=== PATIENT | female | born 1980 | race Asian ===

== ENCOUNTER 2019-01-26 20:50 | Inpatient (IN) | payer OTHER, SELFPAY ==
[2019-01-26 22:02] VITALS: BMI 24.7
[2019-01-26 22:24] LABS: Absolute Lymphocyte Count 1.99 X10^3/uL (0.83-4.51); Basophil# 0.02 X10^3/uL; Basophil% 0.1 % (0-1); Eosinophils% 0.7 % (0-5); Hematocrit 40.4 % (37-47); Hemoglobin 13.4 g/dL (12.0-15.0); Lymphocyte # 1.99 X10^3/ul (4.0); Mean Corp Hgb Conc 33.2 g/dL (32-36); Mean Corpuscular Volume 90.4 fL (81-99); Mean Platelet Vol. 10.7 fl (6.2-12.0); Monocyte# 1.04 X10^3/uL; Monocyte% 7.3 % (0-10); NRBC Flagged by Analyzer 0 % (0-5); Neutrophil # 10.99 X10^3/uL (2.7-7.7); Neutrophil % 77.4 % (47-70); Platelet Count 219 K/mm3 (150-450); RBC Distribution Width CV 13.1 % (11.6-14.6); Red Blood Count 4.47 M/mm3 (4.2-5.4); White Blood Count 14.2 K/mm3 (4.4-11.0)
--- NOTE | 2019-01-26 22:44 | NURSING ---
large void noted
[2019-01-26 23:00] LABS: Rubella IgG 125.6 IU/mL
--- NOTE | 2019-01-27 06:57 | PCM.PN.BLA ---
Progress Note S: Patient with painful ctxs O: cvx - 5-6/90/-1 fhts 145 with mod variability, accels tocos Q2-3 min A&P: expectant management patient declines AROM
--- NOTE | 2019-01-27 12:39 | PCM.PN.OB ---
Subjective: Resting in bed on side, breathing through contractions. and accounting associate at bedside. Objective: FHT 135, moderate variability, accels, no decels, Category 1 TOCO:every 2-4 minutes, moderate to strong Cervix: 6cm/90/0. IBOW. AROM for large amount of clear fluid. Patient tolerated well. - Physical Exam Weight: 143 lb 12.815 oz Body Mass Index (BMI) 24.7 Intake and Output for Last 24 Hours 01/25/19 01/26/19 01/27/19 23:59 23:59 23:59 Intake Total 1600 / 1600 Output Total 700 / 700 Balance 900 / 900 Laboratory Tests Past 24 Hrs 01/26/19 01/26/19 01/26/19 22:05 22:05 22:05 WBC 14.2 H RBC 4.47 Hgb 13.4 Hct 40.4 MCV 90.4 MCH 30.0 MCHC 33.2 RDW Std Deviation 43.0 RDW Coeff of Peter 13.1 Plt Count 219 MPV 10.7 Immature Gran % (Auto) 0.500 Neut % (Auto) 77.4 H Lymph % (Auto) 14.0 L Towns % (Auto) 7.3 Eos % (Auto) 0.7 Baso % (Auto) 0.1 Absolute Neuts (auto) 11.0 H Absolute Lymphs (auto) 1.99 Absolute Nucleated RBC 0.00 Nucleated RBC % 0 Rubella IgG Antibody 125.6 Blood Type A POSITIVE Antibody Screen NEGATIVE Medical Necessity - Tobacco Use Smoking Status: Never smoker Assessment/Plan A:Active labor, protracted Category 1 FHT P: 1) Reviewed with patient recommendation for AROM. Reviewed R/B/A. Consented and tolerated well. 2) Discussed pain management options. Would like nitrous oxide at this time. 3) notified of patient status.
--- NOTE | 2019-01-27 12:44 | PCM.HP.OB ---
- Problem List (1) Advanced maternal age (AMA) in Status: Acute (2) Polyhydramnios affecting Status: Acute History Date of Admission: 01/26/19 Final HUONG: 01/23/19 Final HUONG Source: LMP Gestational age: 40 Weeks and 3 Days History of this : This is a 38 year-old, G [1], P [0], at 40 weeks 3 days gestational age for IOL due to AMA and polyhydramnios. Presented to L&D with irregular contractions upon admission. Allergies No Known Allergies Allergy (Verified 01/26/19 21:57) Home Medications: Home Medications Ferrous Sulfate [Iron] 325 mg PO DAILY 01/26/19 Vit No.130/Iron/Folic [ Tablet] 1 tab PO DAILY 01/26/19 Smoking Status: Never smoker Alcohol: None History Past Pregnancies: Past Pregnancies Delivery Date Name GA/Weeks Outcome Route Weight Infant Gender Labor Length Anesthesia Delivery Location Provider FOB Labs: RPR negative GBS negative GC/CT negative HBsAG negative HIV negative A positive Expected Delivery Method: Spontaneous Vaginal Review of Systems Constitutional: Denies: Chills, Fever, Weight Change HEENT: Denies: Head Aches, Sinus Congestion, Sinus Drainage Cardiovascular: Denies: Chest Pain, Palpitations Respiratory: Denies: Cough, Shortness of breath at rest, Sputum production Gastrointestinal: Denies: Abdominal Pain, Nausea, Vomiting Genitourinary: Denies: Dysuria Musculoskeletal: Denies: Joint Pain, Joint Tenderness Neurological: Denies: Numbness, Tingling, Focal weakness Psychiatric: Denies: Anxiety, Depression, Homicidal Ideations, Suicidal Ideations Physical Exam General: Alert, Oriented x3, Cooperative HEENT: Atraumatic, Normocephalic Abdomen: Gravid CANTILEVER CRANE OPERATOR: Normal external genitalia Estimated gestational size: Appropriate for gestational size Presentation: Cephalic Station: 3 Assessment/Plan All Active Problems Advanced maternal age (AMA) in (Acute) Polyhydramnios affecting (Acute) A: Postdates Induction of labor Polyhydramnios Advanced maternal age P: 1) Admit to L&D 2) Routine labs. IV saline lock 3) Early labor, patient requested to labor without augmentation. 4) management
[2019-01-27] MEDS: Nalbuphine 10 MG/ML Ampul IV ×2 (14:28→17:43)
[2019-01-27] MEDS: 0.9% Saline Lock 10 ML Syringe IV (14:29)
--- NOTE | 2019-01-27 17:26 | PCM.PN.OB ---
Patient Problems: Active and Suspected Problems Advanced maternal age (AMA) in (Acute) Polyhydramnios affecting (Acute) Subjective: Coping well with contractions, using nitrous for pain relief and effective. and regional marketing manager at bedside. Objective: FHT 130, moderate variability, accels, no decels TOCO: Contractions every 2-5, strong, lasting 60 seconds Cervix 8cm/95%/0 head transverse. - Physical Exam Weight: 143 lb 12.815 oz Body Mass Index (BMI) 24.7 Intake and Output for Last 24 Hours 01/25/19 01/26/19 01/27/19 23:59 23:59 23:59 Intake Total 2600 / 2600 Output Total 1700 / 1700 Balance 900 / 900 Laboratory Tests Past 24 Hrs 01/26/19 01/26/19 01/26/19 22:05 22:05 22:05 WBC 14.2 H RBC 4.47 Hgb 13.4 Hct 40.4 MCV 90.4 MCH 30.0 MCHC 33.2 RDW Std Deviation 43.0 RDW Coeff of Peter 13.1 Plt Count 219 MPV 10.7 Immature Gran % (Auto) 0.500 Neut % (Auto) 77.4 H Lymph % (Auto) 14.0 L [place] % (Auto) 7.3 Eos % (Auto) 0.7 Baso % (Auto) 0.1 Absolute Neuts (auto) 11.0 H Absolute Lymphs (auto) 1.99 Absolute Nucleated RBC 0.00 Nucleated RBC % 0 Rubella IgG Antibody 125.6 Blood Type A POSITIVE Antibody Screen NEGATIVE Medical Necessity - Tobacco Use Smoking Status: Never smoker Assessment/Plan All Active Problems Advanced maternal age (AMA) in (Acute) Polyhydramnios affecting (Acute) A:Active labor, progressing Category 1 FHT P: 1) Discussed with patient contractions spacing out and recommendation for starting pitocin. Reviewed r/b/a and agreed with plan. 2) Discussed positional changes 3) notified and hand off care.
[2019-01-27] MEDS: Lactated Ringers 1,000 ML 50 ML IV (17:52)
[2019-01-27] MEDS: Oxytocin 30 units/NS 500 ml 30 UNITS/500 ML IV.SOLN IV (17:57)
--- NOTE | 2019-01-27 22:33 | PCM.PN.BLA ---
Progress Note Patient seen at bedside. Vaginal exam performed patient is 8 cm / 95%/0 station fetus noted to be transverse arrest. Estimated weight approximately 9 pounds. Discussed with the patient and that she has not made significant change. Patient has been 8 cm since approximately 4:50 PM. Discussed that this is considered arrest and I recommend a primary section at this time. Patient and want time to discuss. I discussed we could do gentle still with delayed cord clamping if the infant is vigorous at , clear draped, if staffing available immediate skin the skin.
[2019-01-27] MEDS: CHLORHEXIDINE GLUC 2% CLOTH 1 EACH TOWELETTE TOPICAL (22:40)
[2019-01-27] MEDS: Sodium Citrate/Citric Acid 30 ML UDC PO (22:40)
[2019-01-27] MEDS: Lactated Ringers 1,000 ML 999 ML IV (22:49)
[2019-01-27] MEDS: Cefazolin 2 GM in 0.9% Normal Saline 100 ML IV (22:58)
[2019-01-27] MEDS: Oxytocin 30 units/NS 500 ml 30 UNITS/500 ML IV.SOLN 167 UNITS IV (23:19)
--- NOTE | 2019-01-27 23:55 | OP.PCM_ITS ---
Delivery Classification: KRISTIE Final HUONG: 01/23/19 Gestational age: 40 Weeks and 4 Days Indications: Patient was induction for AMA, polyhydramnios at 40 weeks and 3 days gestation. Progressed to 8 cm 95% effaced 0 station with a rest of dilation for over 5 hours. Patient was consented for primary section. Description of Procedure: Surgeon: Dr. Heidy Ivey Mail List Processor: Ericka CAMARA Preoperative diagnosis: Arrest of dilation 8 cm Postoperative diagnosis: Arrest of dilation 8 cm, live female infant Findings: Normal tubes and ovaries bilaterally head in the transverse position Anesthesia: Spinal Complications: None Estimated blood loss:650 Implantable devices: None Operative note: After informed consent was obtained the patient was taken the operating room she was given spinal anesthesia. She was then placed in the supine position. She was prepped and draped in the normal sterile fashion. Anesthesia was found to be adequate. At this time a Pfannenstiel skin incision was made with a knife was carried down to the underlying layer of the fascia. The fascial incision was then extended laterally using curved Holloway scissor. Attention was then turned to the superior aspect of the fascial edge was grasped with 2 straight Longview clamps tented up and the rectus muscle dissected off sharply using curved Holloway scissor. Attention was then turned to the inferior aspect where again Madhu clamps were placed in the rectus muscles were tented up and the fascia was dissected off sharply using the curved Holloway scissor. Rectus muscles were then in the midline bluntly and peritoneum was entered bluntly. Gentle opposing traction was placed. At this time the vesicouterine peritoneum was identified. Scalpel was used to make a uterine incision in a low transverse fashion. The uterus was then entered bluntly gentle opposing traction was placed to extend this incision. 's head was brought to the uterine incision was delivered atraumatically. delayed cord clamping performed. Was vigorous cord was clamped and cut infant was handed to the waiting nursery team. Skin to skin performed. the Placenta was removed from the uterus. The uterus was then removed from the abdominal cavity. The uterus was cleared of all clots and debris using a lap. At this time the uterine incision was reapproximated using #1 Vicryl in a running locked fashion. Hemostasis was appreciated. Posterior cul-de-sac was then cleared of all clots and debris. Uterus was placed back in the abdominal cavity. Gutters were cleared of all clots and debris. Uterine incision was reevaluated and noted to be of excellent hemostasis. At this time the peritoneum and muscle were grasped with Kellys reapproximated using #2 Vicryl suture in a running fashion. Fascia was then reapproximated using #1 Vicryl in a running fashion. Subcu layer was reapproximated with #2 0 plain gut suture in an interrupted fashion. Subcu layer was closed using 4-0 Monocryl in a Hi needle in a subcu fashion. Dry sterile dressing was applied. Instrument lap needle count correct ?2. Anticipated normal postoperative course. Amniotic Membrane Rupture Type: Artificial Amniotic Fluid Description: Clear Placenta Disposition: [facility] Drain: Pearson to straight drain Cord Entanglement: None Cord Vessel Description: 3 Vessels Esitmated Blood Loss (ml): 650 Gender: Female (1 minute): 8 (5 minute): 9 Delayed cord clamping: Yes Pre-op Antibiotic Given: Ancef 2 grams IV x1 Pt instructed on risks of surgery: Bleeding, Anesthesia Risks, Infection, Injury to surrounding structure(s) including bowel and bladder Complications: None - Admit VTE Documentation VTE Present on Admission: Yes VTE Mechan Device Prophylaxis: SCD's VTE Pharm Prophylaxis ordered?: No
[2019-01-28] VITALS (25 sets, daily range): BP systolic 84–143; BP diastolic 45–82; PULSE 80–107; RESP 16–20; TEMP 36.1–37.6; O2SAT 93–100
[2019-01-28] MEDS: Lactated Ringers 1,000 ML 100 ML IV ×2 (00:05→03:45)
[2019-01-28] MEDS: Ketorolac 30 MG/ML Syringe IV (06:29)
[2019-01-28] MEDS: 0.9% Saline Lock 10 ML Syringe IV (06:29)
[2019-01-28] MEDS: Senna/Docusate Sodium 1 Tablet PO (07:55)
[2019-01-28] MEDS: Ferrous Sulfate 325 MG Tablet PO (07:55)
--- NOTE | 2019-01-28 08:30 | NURSING ---
Patient up and ambulated to bathroom with minimal assistance. Partial bath at sink and brushed teeth. Reports being pain free. Tolerated well. Bed linens changed.
--- NOTE | 2019-01-28 08:39 | NURSING ---
Patient has indwelling resendez catheter. WNL.
--- NOTE | 2019-01-28 09:04 | PCM.PN.OB ---
Patient Problems: Active and Suspected Problems Advanced maternal age (AMA) in (Acute) Polyhydramnios affecting (Acute) Subjective: Patient seen at bedside doing well. Patient reports breast-feeding is going well. Pain is well controlled. Denies any nausea vomiting, chest pain, shortness of breath. - Physical Exam General: Alert, Oriented x3 Abdomen: Soft, Non-Distended, - - fundus firm, incision dressing dry and intact Extremities: No Calf Tenderness Vital Signs Temp Pulse Resp BP Pulse Ox 98.5 F 92 16 93/52 L 97 01/28/19 07:57 01/28/19 07:57 01/28/19 07:57 01/28/19 07:57 01/28/19 07:57 Oxygen Delivery Method Room Air Weight: 65.227 kg Body Mass Index (BMI) 24.7 Intake and Output for Last 24 Hours 01/26/19 01/27/19 01/28/19 23:59 23:59 23:59 Intake Total 3600 / 3600 2123 / 2123 Output Total 1900 / 1900 2725 / 2725 Balance 1700 / 1700 -602 / -602 Medical Necessity - Tobacco Use Smoking Status: Never smoker Assessment/Plan All Active Problems Advanced maternal age (AMA) in (Acute) Polyhydramnios affecting (Acute) Postoperative day #1, patient doing well Routine care DC Pearson Ambulation Pain management
[2019-01-29] MEDS: Ibuprofen 600 MG Tablet PO ×3 (01:58→18:07)
[2019-01-29 02:05] VITALS: BP 107/55; PULSE 95; RESP 16; TEMP 38; O2SAT 96
[2019-01-29 03:00] VITALS: TEMP 37.1
[2019-01-29] MEDS: Acetaminophen 500 MG Tablet 1000 MG PO ×3 (05:40→23:36)
[2019-01-29 06:40] LABS: Hematocrit 26.3 % (37-47); Hemoglobin 8.9 g/dL (12.0-15.0); Mean Corp Hgb Conc 33.8 g/dL (32-36); Mean Corpuscular Hgb 31.1 pg (27.0-32.0); Mean Platelet Vol. 10.9 fl (6.2-12.0); Platelet Count 162 K/mm3 (150-450); RBC Distribution Width CV 13.4 % (11.6-14.6); RBC Distribution Width SD 45.1 fl (35.1-43.9); Red Blood Count 2.86 M/mm3 (4.2-5.4); White Blood Count 17.1 K/mm3 (4.4-11.0)
--- NOTE | 2019-01-29 08:25 | PCM.PN.OB ---
Patient Problems: Active and Suspected Problems Advanced maternal age (AMA) in (Acute) Polyhydramnios affecting (Acute) Subjective: No complaints. - Physical Exam General: Alert, Oriented x3 Abdomen: Soft, Non Tender, Non-Distended - ff mid & below umb; inc - bandage c/d/i Extremities: No Calf Tenderness Neurological: Cranial nerves II-XII grossly intact Vital Signs Temp Pulse Resp BP Pulse Ox 98.7 F 95 16 107/55 L 96 01/29/19 03:00 01/29/19 02:05 01/29/19 02:05 01/29/19 02:05 01/29/19 02:05 Oxygen Delivery Method Room Air Weight: 143 lb 12.815 oz Body Mass Index (BMI) 24.7 Intake and Output for Last 24 Hours 01/27/19 01/28/19 01/29/19 23:59 23:59 23:59 Intake Total 3600 / 3600 3348 / 3348 Output Total 1900 / 1900 5500 / 5500 Balance 1700 / 1700 -2152 / -2152 Laboratory Tests Past 24 Hrs 01/29/19 06:30 WBC 17.1 H RBC 2.86 L Hgb 8.9 L Hct 26.3 L MCV 92.0 MCH 31.1 MCHC 33.8 RDW Std Deviation 45.1 H RDW Coeff of Peter 13.4 Plt Count 162 MPV 10.9 Medical Necessity - Tobacco Use Smoking Status: Never smoker Assessment/Plan All Active Problems Advanced maternal age (AMA) in (Acute) Polyhydramnios affecting (Acute) POD#2 Routine care ID - AF but some elevated temps. Monitor for signs infection. Encouraged .
[2019-01-29] MEDS: Ferrous Sulfate 325 MG Tablet PO (08:45)
[2019-01-29 08:50] VITALS: BP 106/58; PULSE 73; RESP 20; TEMP 36.4
[2019-01-29 14:00] VITALS: BP 112/62; PULSE 93; RESP 16; TEMP 36.7; O2SAT 97
[2019-01-29 20:34] VITALS: BP 107/57; PULSE 85; RESP 16; TEMP 36.6
[2019-01-30 01:25] VITALS: BP 104/59; PULSE 78; RESP 18; TEMP 36.7
[2019-01-30] MEDS: Ibuprofen 600 MG Tablet PO ×2 (01:31→11:34)
[2019-01-30 08:20] VITALS: BP 109/54; PULSE 68; RESP 18; TEMP 37.1
[2019-01-30] MEDS: Ferrous Sulfate 325 MG Tablet PO (08:45)
--- NOTE | 2019-01-30 09:52 | PCM.PN.OB ---
Patient Problems: Active and Suspected Problems Advanced maternal age (AMA) in (Acute) Polyhydramnios affecting (Acute) Subjective: No complaints - Physical Exam General: Alert, Oriented x3 Abdomen: Soft, Non Tender, Non-Distended - ff mid & below umb; inc - c/d/i Extremities: No Calf Tenderness Neurological: Cranial nerves II-XII grossly intact Vital Signs Temp Pulse Resp BP Pulse Ox 98.8 F 68 18 109/54 L 97 01/30/19 08:20 01/30/19 08:20 01/30/19 08:20 01/30/19 08:20 01/29/19 14:00 Oxygen Delivery Method Room Air Weight: 143 lb 12.815 oz Body Mass Index (BMI) 24.7 Intake and Output for Last 24 Hours 01/28/19 01/29/19 01/30/19 23:59 23:59 23:59 Intake Total 3348 / 3348 Output Total 5500 / 5500 Balance -2152 / -2152 Medical Necessity - Tobacco Use Smoking Status: Never smoker Assessment/Plan All Active Problems Advanced maternal age (AMA) in (Acute) Polyhydramnios affecting (Acute) POD#3 D/c home Anemia - continue iron
--- NOTE | 2019-01-30 10:08 | DCINST_ITS ---
Discharge Diet: No Restrictions Discharge Activity: May not drive while taking narcotic pain medications., May Shower May resume sexual activity in: 6 weeks Weight Bearing Status: Weight bearing as tolerated Call your doctor if your incision/area has: Continuous Slow Oozing, Sudden Increased Bleeding, Increased Pain/ Swelling, Increased Redness, Foul Smelling Discharge, Swelling at the incision site Additional Instructions: If you experience any of the following, contact your healthcare provider. * Bleeding that soaks a pad every hour for 2 hours * Fever 100.4 or higher * Unrelieved incision or abdominal pain * Swelling, redness, discharge or bleeding from your incision or episiotomy site * Your incision begins to separate * Problems urinating (including inability to urinate or burning while urinating). * Visual changes * Severe headache * Flu-like symptoms * Pain or redness in one of both of your breasts * Pain, warmth, tenderness or swelling in your legs, especially the calf area * Frequent nausea and vomiting * Symptoms of depression or anxiety If you experience any of the following, call 911 or go to the nearest Emergency Room. * Chest pain * Problems breathing * Seizure activity * Partial or complete paralysis of a body part, slurred speech, weakness or drooping of the face, or a sudden inability to walk or hold your balance Allergies/Adverse Reactions: Allergies No Known Allergies Allergy (Verified 01/26/19 21:57) Medications to take at Discharge Ferrous Sulfate [Iron] 325 mg PO DAILY 01/26/19 Vit No.130/Iron/Folic [ Tablet] 1 tab PO DAILY 01/26/19 Oxycodone [Oxyir] 5 mg PO Q6H PRN PRN 2 Days #5 tab 01/30/19 The following prescriptions were given: Oxycodone [Oxyir] 5 mg PO Q6H PRN PRN 2 Days #5 tab PRN Reason: Pain Prescription Printed Follow-Up: Call to make an appointment with your doctor for an incision check in 1-2 weeks. You will also need a 6 week post- follow up appointment. Test results from this visit will be discussed in further detail at your follow- up appointment, if applicable. Primary Care Physician: Care Physician,No Primary [Primary Care Provider] -
--- NOTE | 2019-01-30 10:26 | PCM.DC.SUM ---
Discharge Date and Diagnosis - Problem List Patient Problems: Active and Suspected Problems Advanced maternal age (AMA) in (Acute) Polyhydramnios affecting (Acute) Date of Admission: 01/26/19 Date of Discharge: 01/30/19 - Primary Discharge Diagnosis Active and Suspected Problems Advanced maternal age (AMA) in (Acute) Polyhydramnios affecting (Acute) Hospital Course and Treatment Consultations 01/26/19 21:06 Consult: Anesthesia Routine Comment: Reason For Exam: ROUTINE Summary of Care Provided: The patient is a 38 year old F @ 40&3 was admitted in early labor. She had a primary - please see operative report. Hospital course: Heme - HDS, d/c home on iron Pain - rx oxycodone given Discharge instructions given Patient Problems: Active and Suspected Problems Advanced maternal age (AMA) in (Acute) Polyhydramnios affecting (Acute) - Physical Exam Vital Signs Temp Pulse Resp BP Pulse Ox 98.8 F 68 18 109/54 L 97 01/30/19 08:20 01/30/19 08:20 01/30/19 08:20 01/30/19 08:20 01/29/19 14:00 Oxygen Delivery Method Room Air Weight: 143 lb 12.815 oz Body Mass Index (BMI) 24.7 Intake and Output for Last 24 Hours 01/28/19 01/29/19 01/30/19 23:59 23:59 23:59 Intake Total 3348 / 3348 Output Total 5500 / 5500 Balance -2152 / -2152 Discharge Diet: No Restrictions Discharge Activity: May not drive while taking narcotic pain medications., May Shower May resume sexual activity in: 6 weeks Weight Bearing Status: Weight bearing as tolerated Call your doctor if your incision/area has: Continuous Slow Oozing, Sudden Increased Bleeding, Increased Pain/ Swelling, Increased Redness, Foul Smelling Discharge, Swelling at the incision site Home Medications: Medications to take at Discharge Ferrous Sulfate [Iron] 325 mg PO DAILY 01/26/19 Vit No.130/Iron/Folic [ Tablet] 1 tab PO DAILY 01/26/19 Oxycodone [Oxyir] 5 mg PO Q6H PRN PRN 2 Days #5 tab 01/30/19 Following Prescrptions Were Given to Patient: Oxycodone [Oxyir] 5 mg PO Q6H PRN PRN 2 Days #5 tab PRN Reason: Pain Prescription Printed Primary Care Physician: Care Physician,No Primary [Primary Care Provider] - Medical Necessity - Tobacco Use Smoking Status: Never smoker Meaningful Use Info Meaningful Use Diagnoses (Choose all that apply): None applicable
[2019-01-30 14:35] VITALS: BP 114/59; PULSE 75; RESP 18; TEMP 36.7
[2019-01-30 18:29] VITALS: BP 125/67; PULSE 86; RESP 18; TEMP 36.5
--- NOTE | 2019-02-03 16:32 | NURSING ---
Mother and baby doing well. Mother's milk is in. Mother had consult see note
== END 2019-01-30 18:50 | disposition home or self-care (01) | DRG 788 ==
PROVIDERS: Obstetrics & Gynecology; Admitting Provider Obstetrics & Gynecology; Referring Provider Advanced Practice Midwife; Visit Provider Obstetrics & Gynecology
DX: O62.0 Primary inadequate contractions (principal); O40.3XX0 Polyhydramnios, third trimester, not applicable or unspecified; O48.0 Post-term pregnancy; O99.02 Anemia complicating childbirth; D64.9 Anemia, unspecified; Z37.0 Single live birth; Z3A.40 40 weeks gestation of pregnancy
CPT/HCPCS: 59025; 59050; 85025; 85027; 86762; 86850; 86900; 99218; J7120; A4216; G0378

== ENCOUNTER → 2019-03-11 12:01 | Outpatient (CLI) | payer OTHER, SELFPAY ==
[2019-03-11 14:22] LABS: Absolute Lymphocyte Count 2.78 X10^3/uL (0.83-4.51); Absolute Neutrophil Count 4.4 X10^3/uL (2.0-7.7); Basophil# 0.04 X10^3/uL; Basophil% 0.5 % (0-1); Eosinophil# 0.21 X10^3/uL; Eosinophils% 2.6 % (0-5); Hematocrit 40.3 % (37-47); Hemoglobin 12.8 g/dL (12.0-15.0); Lymphocyte # 2.78 X10^3/ul (4.0); Lymphocyte % 34.7 % (19-41); Mean Corp Hgb Conc 31.8 g/dL (32-36); Mean Corpuscular Hgb 29.2 pg (27.0-32.0); Mean Platelet Vol. 10.2 fl (6.2-12.0); Monocyte# 0.54 X10^3/uL; Monocyte% 6.7 % (0-10); NRBC Flagged by Analyzer 0 % (0-5); Neutrophil # 4.41 X10^3/uL (2.7-7.7); Platelet Count 308 K/mm3 (150-450); RBC Distribution Width CV 11.9 % (11.6-14.6); RBC Distribution Width SD 40.3 fl (35.1-43.9); Red Blood Count 4.38 M/mm3 (4.2-5.4)
[2019-03-11 14:56] LABS: Vitamin B12 812 pg/mL (211-911)
[2019-03-11 15:28] LABS: AST(SGOT) 52 U/L (15-37); Alanine Aminotransfer ALT/SGPT 88 U/L (13-56); Albumin, Serum 3.8 g/dL (3.2-5.0); Alkaline Phosphatase 64 U/L (45-117); Anion Gap 6 (5-15); BUN 13 mg/dL (7-18); BUN/Creat Ratio 19.5 RATIO (10-20); Calcium,Total 8.8 mg/dL (8.5-10.1); Chloride 104 mmol/L (98-107); Creatinine, Serum 0.66 mg/dL (0.55-1.02); EST Glomerular Filtration Rate 105 mL/min (>60); Est Glom Filt Rate - Afr Amer 127 mL/min (>60); Ferritin 66 ng/mL (8-252); Globulin 3.8 g/dL (2.2-4.2); Glucose 80 mg/dL (74-106); Potassium 3.9 mmol/L (3.5-5.1); Protein, Total 7.6 g/dL (6.4-8.2); Sodium Level 138 mmol/L (136-145); Thyroid Stim Hormone (TSH) 0.78 uIU/mL (0.358-3.74)
[2019-03-12 14:21] LABS: CRP 3.32 mg/L (0.0-3.0); GGTP 15 U/L (5-55)
[2019-03-13 14:15] LABS: ANTINUCLEAR ANTIBODIES DIRECT Negative (Negative)
[2019-03-15 16:07] LABS: Endomysial Antibody IgA Negative (Negative); HEPATITIS B SURFACE AG Negative (Negative); Hepatitis A AB, Total Positive (Negative); Hepatitis A IgM Antibody Negative (Negative); Hepatitis B Core AB IgM Negative (Negative); Hepatitis B Core Ab Total Negative (Negative); Hepatitis C Ab <0.1 s/co ratio (0.0-0.9); Immunoglobulin A 173 mg/dL (87-352); PROEL- A/G Ratio 1.2 (0.7-1.7); PROEL- Albumin 3.8 g/dL (2.9-4.4); PROEL- Alpha-1 Globulin 0.2 g/dL (0.0-0.4); PROEL- Alpha-2 Globulin 0.7 g/dL (0.4-1.0); PROEL- Beta Globulin 1.1 g/dL (0.7-1.3); PROEL- Gamma Globulin 1.2 g/dL (0.4-1.8); PROEL- Globulin, Total 3.2 g/dL (2.2-3.9)
[2019-03-17 12:29] LABS: Hep B Surface Antibodies Reactive (.); t-Transglutaminase IgA <2 U/mL (0-3)
== END ==
PROVIDERS: Family Provider Family Medicine; PCP Family Medicine; Referring Provider Family Medicine; Visit Provider Family Medicine
DX: O90.81 Anemia of the puerperium (principal); R20.2 Paresthesia of skin; M25.50 Pain in unspecified joint; R74.0 Nonspecific elevation of levels of transaminase and lactic acid dehydrogenase [LDH]
CPT/HCPCS: 36415; 80053; 82607; 82728; 82746; 82784; 82977; 83516; 84165; 84439; 84443; 84550; 85025; 86038; 86140; 86255; 86704; 86705; 86706; 86708; 86709; 86803; 87340

== ENCOUNTER → 2020-01-21 18:02 | Outpatient (CLI) | payer OTHER, SELFPAY | PROVIDERS: PCP Family Medicine; Referring Provider Registered Nurse; Visit Provider Registered Nurse | DX: Z11.59 Encounter for screening for other viral diseases (principal) | CPT/HCPCS: 87635; U0003 ==